=== PATIENT | female | born 1950 | race Caucasian/White ===

== ENCOUNTER → 2021-02-13 | Outpatient (CLI) | payer OTHER ==
[~2021-02-13] MED LIST: ACETAMINOPHEN-1 EAC1 PO; ALLOPURINOL 30300 M2 PO; ARICEPT 5 MG TAB5 MG PO; CALCIUM 500 +1 EAC5 PO; CALCIUM 600 +1 EA15 PO; CEFTIN 250 MG250 MG PO; CENTRUM SILVER1 EAC4 PO; CEPACOL SORE T1 EAC7 MM; COLACE100 MG PO; COUMADIN 5 MG TA5 M1 PO; COZAAR 25 MG TA25 M2 PO; DUONEB 2.5-0.5 M3 ML INH; ELEMENTAL CALC600 MG PO; FARXIGA10 MG PO; GLUCOSAM-CHOND1 EACH PO; GLUCOSAMINE HC500 MG PO; HYDRALAZINE 2525 MG PO; HYDROCODONE-AP1 EAC6 PO; HYDROCODONE-APA1 TA1 PO; JANUVIA25 MG PO; KEPPRA 500 MG500 M1 PO; KLOR-CON 1010 MEQ PO; LASIX 80 MG TAB80 MG PO; LEVEMIR100 UNIT/1 SUBQ; LIPITOR 20 MG T20 M1 PO; LISINOPRIL20 MG PO; MEDI PO; METFORMIN HCL500 MG PO; MULTIVITAMINS PO; NAMENDA 10 MG T10 MG PO; NOVOLOG100 UNIT/1 SUBQ; OMEPRAZOLE20 M2 PO; ONDANSETRON HCL4 M2 PO; PEPCID20 MG PO; PERCOCET 10-321 EACH PO; PREDNISONE 10 M10 MG PO; PREVACID30 M2; PRINIVIL40 MG PO; TRAMADOL 50 MG50 MG PO; TYLENOL325 MG PO; VENTOLIN HFA 1818 GM INH; VITAMIN B-12500 MCG PO; VITAMIN B12-FO1 EAC1 PO; VITAMIN D 5050000 I1 PO; XARELTO10 MG PO
== END ==
LOC: RAD 13:37
PROVIDERS: ATTEND Nurse Practitioner
DX: Z12.31 Encounter for screening mammogram for malignant neoplasm of breast (principal); N63.20 Unspecified lump in the left breast, unspecified quadrant

== ENCOUNTER → 2021-02-18 | Outpatient (CLI) | payer OTHER | LOC: RAD 13:47 | PROVIDERS: ATTEND Family Medicine | DX: N63.21 Unspecified lump in the left breast, upper outer quadrant (principal); R92.8 Other abnormal and inconclusive findings on diagnostic imaging of breast ==

== ENCOUNTER → 2021-09-02 | Outpatient (CLI) | payer OTHER | LOC: BC 14:14 | PROVIDERS: ATTEND Nurse Practitioner | DX: N63.20 Unspecified lump in the left breast, unspecified quadrant (principal); R92.8 Other abnormal and inconclusive findings on diagnostic imaging of breast ==